=== PATIENT | male | born 2000 | race Caucasian/White ===

== ENCOUNTER 2021-12-26 01:17 | Emergency (ER) | payer SELFPAY ==
[2021-12-26 01:28] VITALS: BP 157/77
[2021-12-26] MEDS ORDERED: diphenhydrAMINE 25 MG CAP PO ONE (01:32)
[2021-12-26] MEDS ORDERED: methylPREDNISolone Sod Succinate 125 MG/2 ML INJ IV ONE (09:09)
[2021-12-26] MEDS ORDERED: FAMOTIDINE 20 MG/2 ML INJ IV ONE (09:10)
[2021-12-26] MEDS ORDERED: SODIUM CHLORIDE 0.9% 1000 ML 1,000 ML IV ONE (09:10)
--- NOTE | 2021-12-26 09:10 | Emergency Department Report ---
HPI - General Chief Complaint: Allergic Reaction PUI?: No Time Seen by Provider: 12/26/21 08:54 - HPI HPI: Patient is a 21-year-old male that comes to the emergency room with difficulty in breathing after taking Motrin. He states that he has never have had Motrin or ibuprofen Aleve or other derivatives in his 21 years. He states he is always taken Tylenol if needed. His mother endorses this On my exam at 9:00 he has no wheezing. ABCs are intact. He is controlling secretions. He is talking in full sentences without shortness of breath or chest pain ED Past Medical Hx - Past Medical History Previous Medical History?: No - Surgical History Past Surgical History?: No - Family History Family history: no significant - Social History Smoking Status: Never Smoker Substance Use Type: None - Medications Home Medications: Home Medications Medication Instructions Recorded Confirmed Last Taken Type Famotidine [Pepcid] 20 mg PO DAILY #30 tablet 12/26/21 Unknown Rx diphenhydrAMINE [Benadryl CAP] 25 mg PO Q8HR PRN #20 capsule 12/26/21 Unknown Rx predniSONE [Deltasone] 20 mg PO DAILY #5 tablet 12/26/21 Unknown Rx ED Review of Systems ROS: Stated complaint: ALLERGIC REACTION Other details as noted in HPI Comment: All other systems reviewed and negative Physical Exam - Physical Exam Vital Signs: Vital Signs 12/26/21 01:20 Temperature 97.6 F Pulse Rate 117 H Respiratory 18 Rate Blood Pressure 157/77 O2 Sat by Pulse 100 Oximetry General: Alert and oriented x4 neuro intact, No focal deficit S1-S2 Lungs clear to auscultation ABCs intact Abdomen soft nontender No CVA tender ED Course Vital Signs 12/26/21 01:20 Temperature 97.6 F Pulse Rate 117 H Respiratory 18 Rate Blood Pressure 157/77 O2 Sat by Pulse 100 Oximetry ED Medical Decision Making - Medical Decision Making Patient had been medicated with p.o. Benadryl on arrival. I have dosed him with Solu-Medrol and Pepcid IV. He has an INT in place. Vital Signs 12/26/21 01:20 Temperature 97.6 F Pulse Rate 117 H Respiratory 18 Rate Blood Pressure 157/77 O2 Sat by Pulse 100 Oximetry I have asked the nurses to recheck his vital signs at 0900 1020 On discharge exam patient reports swelling is down. Patient will discharge home with mother. They verbalized understanding of discharge plan of care including diet, activity, medication and follow-up. Provider has taken vital signs on discharge. Blood pressure 110/70. Heart rate is 78. Sat is 100% on room air. Patient is ambulatory with no shortness of breath on discharge. Patient discharged home with his mother. They verbalized understanding of discharge plan of care including diet, activities, medications and follow-up. ABCs remained intact. He is taking p.o. Has no shortness of breath. No chest pain. No hives. - Differential Diagnosis Allergic reaction Critical care attestation.: If time is entered above; I have spent that time in minutes in the direct care of this critically ill patient, excluding procedure time. ED Disposition Clinical Impression: Allergic reaction Disposition: HOME / SELF CARE / HOMELESS Is pt being admited?: No Does the pt Need Aspirin: No Condition: Stable Instructions: Allergies, Adult Additional Instructions: Medications as ordered today Avoid all medications that are classified as nonsteroidal anti-inflammatory drugs-this includes Naprosyn, ibuprofen, Aleve, Toradol, Motrin Tylenol is okay for you to take Follow-up with PCP in 48 hours to be sure that you are improving Referral has been given below Prescriptions: diphenhydrAMINE [Benadryl CAP] 25 mg PO Q8HR PRN #20 capsule PRN Reason: Itching predniSONE [Deltasone] 20 mg PO DAILY #5 tablet Famotidine [Pepcid] 20 mg PO DAILY #30 tablet Referrals: JEANCARLOS SEVILLA MD [Staff Physician] - 3-5 Days Forms: Work/School Release Form(ED) Time of Disposition: 09:24
--- NOTE | 2021-12-28 13:20 | Electrocardiograph Report ---
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
== END 2021-12-26 11:38 | disposition home or self-care (01) ==
LOC: ED 01:17
DX: T78.40XA Allergy, unspecified, initial encounter (principal); R06.00 Dyspnea, unspecified; Z88.5 Allergy status to narcotic agent; Z88.8 Allergy status to other drugs, medicaments and biological substances; Z79.899 Other long term (current) drug therapy; X58.XXXA Exposure to other specified factors, initial encounter
CPT/HCPCS: 93005; 96361; 96374; 96375; 99283; J2930; J3490; J7030